=== PATIENT | female | born 1980 | race Caucasian/White ===

== ENCOUNTER 2019-11-28 02:45 | Emergency (ER) | payer OTHER, SELFPAY ==
[2019-11-28] VITALS (18 sets, daily range): BP systolic 122–172; BP diastolic 68–115; PULSE 68–90; RESP 11–23; TEMP 36.3; O2SAT 97–99; BMI 35.7
--- NOTE | 2019-11-28 03:28 | DI.RAD.S_ITS ---
PROCEDURE: XR CHEST 1V INDICATIONS: Chest pain TECHNIQUE: One view of the chest was acquired. COMPARISON: None. FINDINGS: Surgical changes and devices: None. Lungs and pleura: Lungs are clear. No pleural effusions or pneumothorax. Mediastinum: Mediastinal contours appear normal. Heart size is normal. Bones and chest wall: No suspicious bony lesions. Overlying soft tissues appear unremarkable. IMPRESSION: Portable chest within normal limits. Dictated by: Pilo Zamora M.D. on 11/28/2019 at 8:50 Approved by: Pilo Zamora M.D. on 11/28/2019 at 8:51
[2019-11-28] MEDS: ASPIRIN 81 MG CHEW TAB 324 MG PO (03:35)
--- NOTE | 2019-11-28 03:40 | ED.GENADULT ---
HPI - General Adult General Chief complaint: Chest Pain Stated complaint: anxiety, possible sinus infection Time Seen by Provider: 11/28/19 02:46 Source: patient Mode of arrival: Ambulatory Limitations: no limitations History of Present Illness HPI narrative: Patient here this morning for multiple complaints. Patient states she feels very anxious. Multiple things have been going on with her. First she has had a nagging throat irritation for the past 2 or 3 weeks. She has allergies and she felt it might be that or she does have acid reflux and was not sure if that was flaring up. She has had a postnasal drip that irritated the back of her throat. In addition she has had a lot of family stress. This past Saturday she was not allowed to be with her daughter during at doctor's visit. She needed to be cleared for coronavirus. She did get swab and results will return tomorrow. During history taking patient is extremely anxious. Pressured and rapid speech. Denies any recent exertional chest pain or dyspnea. No numbness tingling weakness. Denies any chest pain but just has a sore/burning sensation in her throat. Not worsened with eating. This will occur any time either laying flat sitting up, daytime or nighttime. Blood pressure noted. Again patient is very anxious and does have history of high blood pressure. She states she has a lot going on. She has been taking her blood pressure medication as instructed in the morning at night. She has had trouble sleeping as well. She sees the medical office at the [facility]. Does not take cholesterol medication. Does not smoke. Parents have history of coronary disease. Patient states never had stress test in the past. No history of DVT or PEs. Tonight patient states she is very anxious and felt short of breath and was able to calm herself down a little bed and no longer dyspneic Related Data Previous Rx's Medication Instructions Recorded amoxicillin 500 mg PO BID #20 cap 11/28/19 Allergies Allergy/AdvReac Type Severity Reaction Status Date / Time No Known Drug Allergies Allergy Verified 11/28/19 06:25 Review of Systems Review of Systems Narrative: GENERAL: Denies chills, fatigue, malaise, fever, sweats. HEENT: Denies sinus pain, ear pain, sore throat, difficulty swallowing, dizziness. Complains of postnasal drip and throat irritation RESPIRATORY: Denies dyspnea, cough, wheezing, hemoptysis, sputum. CARDIOVASCULAR: Denies chest pain, palpitations, orthopnea, edema, GASTROINTESTINAL: Denies nausea, vomiting, abdominal pain, diarrhea, constipation, melena. : Denies dysuria, frequency, incontinence, hematuria, urinary retention. MUSCULOSKELETAL: denies weakness, joint pain, or bony pain SKIN: Denies rash, skin lesions NEUROLOGIC: Denies weakness, headache, numbness, change in speech, confusion, seizures, incoordination. PSYCHIATRIC: No concerning psychosocial issues. ROS Unobtainable: All systems reviewed & are unremarkable except as noted in HPI and below Patient History Social History Smoking Status: Never smoker Smoking Status: Never smoker alcohol intake frequency: 0-2 drinks per day Substance Use Type: does not use Exam Narrative Exam Narrative: GENERAL: patient appears stated age. Well-nourished, well-developed patient, in no distress, not toxic HEAD: Atraumatic. Normocephalic. EYES: Pupils equal round and reactive. Extraocular motions intact. No scleral icterus. No injection or drainage. ENT: Nose without bleeding, purulent drainage. There is mild symmetric erythema, no tonsillar hypertrophy or exudate. Airway patent. Mild right submandibular tenderness no palpable mass, no trismus no malocclusion no tongue elevation no drooling NECK: Trachea midline. Non tender CARDIOVASCULAR: Regular rate and rhythm without murmurs, gallops, or rubs. RESPIRATORY: Clear to auscultation. Breath sounds equal bilaterally. No wheezes, rales, or rhonchi. GASTROINTESTINAL: Abdomen soft, non-tender, nondistended. EXTREMITIES: No edema or joint tenderness. BACK: Nontender without deformity or crepitance. No flank tenderness. NEURO: AOx4. SKIN: No rash or erythema of visible areas PSYCH: Not anxious, is cooperative Initial Vital Signs Initial Vital Signs: Vital Signs Temperature 97.4 F L 11/28/19 02:58 Pulse Rate 90 11/28/19 02:58 Respiratory Rate 18 11/28/19 02:58 Blood Pressure 172/115 H 11/28/19 02:58 Pulse Oximetry 99 11/28/19 02:58 Scores HEART Score Heart Score history: Slightly Suspicious Heart Score EKG: Non-Specific repolarization disturbance Heart Score Age: < 45 years old Heart Score risk factors: 1-2 risk factors Heart Score troponin: < or = to normal limit Heart Score Total: 2 Course Course Course Narrative: Patient resting comfortably through course of the emergency department stay. No distress. No chest pain complaints. Additional Information: Time 7:00 a.m.. Sign out doctor jayme... Awaiting results of repeat troponin Orders Ordered: Discontinued Medications Amoxicillin (Trimox) 500 mg PO NOW ONE Stop: 11/28/19 05:10 Last Admin: 11/28/19 06:08 Dose: 500 mg Documented by: MARIO Aspirin (Aspirin Chew) 324 mg PO NOW ONE Stop: 11/28/19 03:29 Last Admin: 11/28/19 03:35 Dose: 324 mg Documented by: MARIO Reevaluation(s) Reevaluation #1: Updated patient results so far. Blood pressure has improved 152/99. Patient much more relaxed. Pulse is 72 Time: 04:00 Reevaluation #2: Blood pressure improved 140/79 pulse 68. Patient resting comfortably. No distress no chest pain. No blood pressure medication given Time: 06:29 Vital Signs Vital signs: Vital Signs - 8 hr 11/28/19 02:58 11/28/19 03:46 11/28/19 04:00 Temperature 97.4 F L Pulse Rate 90 79 82 Respiratory Rate 18 19 23 Blood Pressure 172/115 H 165/94 H Pulse Oximetry 99 97 97 11/28/19 04:30 11/28/19 04:50 11/28/19 05:00 Temperature Pulse Rate 80 72 80 Respiratory Rate 15 16 20 Blood Pressure 152/99 H Pulse Oximetry 97 97 97 11/28/19 05:18 11/28/19 05:30 11/28/19 06:00 Temperature Pulse Rate 78 71 68 Respiratory Rate 14 13 Blood Pressure 152/86 H 152/85 H 140/79 Pulse Oximetry 98 98 97 Medical Decision Making Differential Diagnosis Differential Diagnosis: Anxiety/atypical chest pain Lab Data Lab results reviewed: Yes I reviewed the patient's lab results. Result diagrams: 11/28/19 03:45 11/28/19 03:45 Labs: Lab Results 11/28/19 11/28/19 11/28/19 Range/Units 03:45 03:45 03:45 WBC 12.7 H (4.5-11.0) X10^3/uL RBC 4.84 (4.0-5.2) X10^6/uL Hgb 14.6 (12.0-16.0) g/dL Hct 43.4 (36-46) % MCV 89.6 (80-100) fL MCH 30.2 (26-34) PG MCHC 33.7 (30-36) % RDW 12.6 (11.6-14.8) % Plt Count 321 (150-400) X10^3/uL Neut % (Auto) 77.6 H (50-75) % Lymph % (Auto) 15.2 L (25-40) % Kingfisher % (Auto) 5.8 (3-14) % Eos % (Auto) 0.9 L (2-4) % Baso % (Auto) 0.5 (0-2) % Neut # (Auto) 9900 H (7365-3224) /uL Lymph # (Auto) 1900 (8915-7996) /uL [place]isher # (Auto) 700 (0-900) /uL Eos # (Auto) 100 (0-450) /uL Baso # (Auto) 100 (0-100) /uL PT 12.4 (10.1-12.7) SECONDS INR 1.1 (0.9-1.3) APTT 33 (26.4-36.2) SECONDS Sodium 140 (137-145) mmol/L Potassium 4.4 (3.4-5.1) mmol/L Chloride 102 (98-107) mmol/L Carbon Dioxide 29 (22-32) mmol/L BUN 14 (7-17) mg/dL Creatinine 0.70 (0.52-1.04) mg/dL Estimated GFR > 60.0 (>60) mL/min BUN/Creatinine Ratio 20.0 (6-22) Glucose 115 H (70-100) mg/dL Calcium 9.4 (8.4-10.2) mg/dL Total Bilirubin 1.0 (0.2-1.3) mg/dL AST 35 (14-36) IU/L ALT 63 H (<35) IU/L Alkaline Phosphatase 75 (38-126) U/L Total Creatine Kinase 82 (30-135) U/L CK-MB (CK-2) TNP CK-MB (CK-2) Rel Index TNP Troponin I < 0.012 (0.01-0.034) ng/mL Total Protein 8.0 (6.3-8.2) g/dL Albumin 4.6 (3.5-5.0) g/dL Globulin 3.4 (1.7-4.1) g/dL Albumin/Globulin Ratio 1.4 (1.0-2.8) Lipase 93 (23-300) U/L Group A Strep (PCR) 11/28/19 11/28/19 Range/Units 05:14 07:30 WBC (4.5-11.0) X10^3/uL RBC (4.0-5.2) X10^6/uL Hgb (12.0-16.0) g/dL Hct (36-46) % MCV (80-100) fL MCH (26-34) PG MCHC (30-36) % RDW (11.6-14.8) % Plt Count (150-400) X10^3/uL Neut % (Auto) (50-75) % Lymph % (Auto) (25-40) % Kingfisher % (Auto) (3-14) % Eos % (Auto) (2-4) % Baso % (Auto) (0-2) % Neut # (Auto) (8944-8022) /uL Lymph # (Auto) (1789-9875) /uL King[place]isher # (Auto) (0-900) /uL Eos # (Auto) (0-450) /uL Baso # (Auto) (0-100) /uL PT (10.1-12.7) SECONDS INR (0.9-1.3) APTT (26.4-36.2) SECONDS Sodium (137-145) mmol/L Potassium (3.4-5.1) mmol/L Chloride (98-107) mmol/L Carbon Dioxide (22-32) mmol/L BUN (7-17) mg/dL Creatinine (0.52-1.04) mg/dL Estimated GFR (>60) mL/min BUN/Creatinine Ratio (6-22) Glucose (70-100) mg/dL Calcium (8.4-10.2) mg/dL Total Bilirubin (0.2-1.3) mg/dL AST (14-36) IU/L ALT (<35) IU/L Alkaline Phosphatase (38-126) U/L Total Creatine Kinase 68 (30-135) U/L CK-MB (CK-2) TNP CK-MB (CK-2) Rel Index TNP Troponin I < 0.012 (0.01-0.034) ng/mL Total Protein (6.3-8.2) g/dL Albumin (3.5-5.0) g/dL Globulin (1.7-4.1) g/dL Albumin/Globulin Ratio (1.0-2.8) Lipase (23-300) U/L Group A Strep (PCR) Negative Imaging Data Chest x-ray: Attestation: I personally reviewed and interpreted this imaging study as follows: My Impression: nad ECG Data Attestation: I personally reviewed and interpreted this ECG as follows: Interpretation: Normal sinus rhythm no ST elevation. Rate 81 MDM Narrative Medical decision making narrative: No D-dimer at this time. No tachycardia. No persistent dyspnea. Patient with low heart score of 2. Never complains of specific chest pain. Has irritation of the throat. Dyspnea tonight due to anxiety attack. Appropriate for repeat heart enzymes in 4 hours. For rule out white cell count nonspecific but may be evolving pharyngitis/strep throat. Strep screen low sensitivity will start antibiotic today Discharge Plan Departure Patient Disposition: Home Clinical Impression: Anxiety Pharyngitis Qualifiers: Pharyngitis/tonsillitis etiology: unspecified etiology Qualified Code(s): J02.9 - Acute pharyngitis, unspecified Discharge Date/Time: 11/28/19 09:41 Instructions: DI for Pharyngitis/Tonsillopharyngitis -- Adult, DI for Anxiety -- Adult Activity Restrictions/Additional Instructions: Call Dr. Martínez office on Saturday for recheck of your throat pain. See family doctor/base medical provider next week for recheck of your blood pressure and evaluation for anxiety. Continue the amoxicillin prescription written for you. Return if worse or if any questions or concerns. Prescriptions: New amoxicillin 500 mg capsule 500 mg PO BID Qty: 20 RF: 0 Referrals: Martell Martínez MD [Physician] -
[2019-11-28 03:55] LABS: Add Manual Diff / Slide Review NO; Basophils Absolute Auto 100 /uL (0-100); Basophils Percent Auto 0.5 % (0-2); Eosinophils Absolute Auto 100 /uL (0-450); Eosinophils Percent Auto 0.9 % (2-4); Hematocrit 43.4 % (36-46); Hemoglobin 14.6 g/dL (12.0-16.0); Lymphocytes Absolute Auto 1900 /uL (1100-4500); Lymphocytes Percent Auto 15.2 % (25-40); Mean Corpuscular HGB Conc 33.7 % (30-36); Mean Corpuscular Hemoglobin 30.2 PG (26-34); Mean Corpuscular Volume 89.6 fL (80-100); Monocytes Absolute Auto 700 /uL (0-900); Monocytes Percent Auto 5.8 % (3-14); Neutrophils Absolute Auto 9900 /uL (1500-7000); Neutrophils Percent Auto 77.6 % (50-75); Platelet Count 321 X10^3/uL (150-400); Red Blood Cell Count 4.84 X10^6/uL (4.0-5.2); Red Cell Distribution Width 12.6 % (11.6-14.8); White Blood Cell Count 12.7 X10^3/uL (4.5-11.0)
[2019-11-28 03:57] LABS: INR 1.1 (0.9-1.3); Prothrombin Time 12.4 SECONDS (10.1-12.7)
[2019-11-28 03:59] LABS: PTT Partial Thromboplastin Tim 33 SECONDS (26.4-36.2)
[2019-11-28 04:02] LABS: Alanine Aminotransferase 63 IU/L (<35); Albumin 4.6 g/dL (3.5-5.0); Albumin Globulin Ratio 1.4 (1.0-2.8); Alkaline Phosphatase 75 U/L (38-126); Aspartate Aminotransferase 35 IU/L (14-36); Blood Urea Nitrogen 14 mg/dL (7-17); Calcium 9.4 mg/dL (8.4-10.2); Carbon Dioxide 29 mmol/L (22-32); Chloride 102 mmol/L (98-107); Creatine Kinase 82 U/L (30-135); Estimated Glomerular Filt Rate > 60.0 mL/min (>60); Globulin 3.4 g/dL (1.7-4.1); Glucose 115 mg/dL (70-100); HEMOLYSIS < 15 (0-50); Lipase 93 U/L (23-300); Potassium 4.4 mmol/L (3.4-5.1); Sodium 140 mmol/L (137-145)
[2019-11-28 04:13] LABS: Troponin I < 0.012 ng/mL (0.01-0.034)
[2019-11-28 05:25] LABS: Strep Grp A by PCR Rapid Negative
[2019-11-28] MEDS: AMOXICILLIN 250 MG CAPSULE 500 MG PO (06:08)
[2019-11-28 09:04] LABS: Creatine Kinase 68 U/L (30-135)
[2019-11-28 09:17] LABS: Troponin I < 0.012 ng/mL (0.01-0.034)
== END 2019-11-28 09:41 | disposition home or self-care (01) ==
PROVIDERS: Emergency Provider Emergency Medicine
DX: J02.9 Acute pharyngitis, unspecified (principal); F41.9 Anxiety disorder, unspecified
CPT/HCPCS: 36415; 71045; 80053; 82550; 83690; 84484; 85025; 85610; 85730; 87651; 93005; 99283; 99284